=== PATIENT | male | born 1965 | race Caucasian/White ===

== ENCOUNTER → 2016-09-18 | Outpatient (CLI) | payer BC ==
[~2016-09-18] MED LIST: CARB200T PO; MISCCAP80 PO; THY/30 PO
--- NOTE | 2016-09-18 18:36 | DIAGNOSTIC IMAGING REPORT ---
LEFT RIBS UNILATERAL WITH PA CHEST CLINICAL HISTORY: Left rib pain status post trauma COMPARISON STUDY: No previous studies for comparison. FINDINGS: There is a right clavicular fracture, likely old. Please correlate clinically. There is no pneumothorax. There is no focal pulmonary consolidation. No left-sided rib fractures are visualized. IMPRESSION: 1. No left-sided rib fractures identified 2. No evidence of pneumothorax 3. Right clavicular fracture, likely old. Clinical correlation is advocated. Electronically signed by: Benji Virk M.D. 09/18/2016 6:35 PM Dictated Date/Time: 09/18/2016 6:33 PM
== END | disposition home or self-care (01) ==
LOC: C.RAD 17:39
PROVIDERS: ATTEND Family Medicine
DX: S20.212A Contusion of left front wall of thorax, initial encounter (principal); S42.001D Fracture of unspecified part of right clavicle, subsequent encounter for fracture with routine healing; X58.XXXA Exposure to other specified factors, initial encounter

== ENCOUNTER 2016-12-02 14:08 | Emergency (ER) | payer BC ==
[~2016-12-02] VITALS: Ht 182.9 cm; Wt 92.0 kg
[2016-12-02 14:28] VITALS: TEMP 37; Ht 182.9 cm; Wt 92.0 kg
[2016-12-02] MEDS ORDERED: SODIUM CHLORIDE 0.9% 1000ML 1,000 ML IV STA (14:32)
[2016-12-02] MEDS ORDERED: LORAZEPAM 2 MG/ML 1 ML VIAL IV STA (14:32)
--- NOTE | 2016-12-02 15:47 | EMERGENCY ROOM VISIT NOTE ---
History Report prepared by Jerry: Ryan Blue Under the Supervision of: Dr. Kar Ribeiro M.D. First contact with patient: 14:23 Chief Complaint: SEIZURE Stated Complaint: SEIZURES History of Present Illness The patient is a 51 year old male who presents to the Emergency Room with complaints of a sudden seizure occurring prior to arrival. The patient states that he was chewing a salad, and he started to feel the seizure coming on, and then he fell and lost consciousness for around 5 minutes. The patient states that he has a history of seizures, and his last one was in 2010. The patient states that his seizures are induced by a certain placement of his jaw, and if he put his mouth a certain way the seizures will occur. He states that he has had jaw massages, and these caused seizures that would last 10-30 seconds. The patient states that he is on Tegretol which has been tapered down, and he forgot to take the medicine for the past two days. The patient states that he was not drinking over the weekend. He states that he has a history of an appendectomy and a bowel obstruction. Source of History: patient Onset: prior to arrival Position: other (global) Quality: other (seizure) Timing: other (sudden) Associated Symptoms: + LOC Review of Systems See HPI for pertinent positives & negatives. A total of 10 systems reviewed and were otherwise negative. Past Medical & Surgical Medical Problems: (1) Seizures Social History Smoking Status: Never Smoker Marital Status: Housing Status: lives with family Occupation Status: employed Current/Historical Medications Scheduled Carbamazepine (Tegretol), 200 MG PO BID Probiotic Product (Probiotic), 1 CAP PO DAILY Thyroid ([place] Thyroid), 90 MG PO DAILY Allergies Coded Allergies: No Known Allergies (Verified , `, 12/02/16) Physical Exam Vital Signs Date Time Temp Pulse Resp B/P Pulse Ox O2 Delivery O2 Flow Rate FiO2 12/02/16 16:22 79 18 147/84 100 12/02/16 15:01 87 18 148/77 100 Room Air 12/02/16 14:47 82 12/02/16 14:28 37.0 90 18 178/100 95 Room Air Physical Exam GENERAL: Patient is well appearing and in no acute distress. HEENT: No acute trauma, normocephalic atraumatic, mucous membranes moist, no nasal congestion, no scleral icterus. NECK: No stridor, no adenopathy, no meningismus, trachea is midline. LUNGS: No dyspnea. Clear to auscultation and equal bilaterally. No wheeze, no rhonchi. HEART: Regular rate and rhythm. No murmurs, rubs, gallops appreciated. ABDOMEN: Old scarring noted. Soft, nontender, bowel sounds positive, no masses appreciated, no peritonitis. BACK: No midline tenderness, no CVA tenderness EXTREMITIES: Normal motion all extremities, no cyanosis, no edema. NEUROLOGIC: Alert and oriented, no acute motor or sensory deficits, no focal weakness, cranial nerves grossly intact. SKIN: No rash, no jaundice, no diaphoresis. Medical Decision & Procedures Medications Administered Medications (Trade) Dose Ordered Sig/Marah Route Start Time Stop Time Status Last Admin Dose Admin Sodium Chloride (Nss 1000ml) 1,000 ml @ 999 mls/hr Q1H1M STAT IV 12/02/16 14:32 12/02/16 15:33 DC 12/02/16 15:00 999 MLS/HR Lorazepam (Ativan Inj) 1 mg NOW STAT IV 12/02/16 14:32 12/02/16 14:33 DC 12/02/16 15:00 1 MG ED Course 1423: The patient was evaluated in room B12. A complete history and physical exam was performed. 1432: Ativan Inj 1mg IV, Sodium Chloride 1000 ml @ 999 mls/hr 1512: I reevaluated the patient, and was feeling fine, and his is at his bedside. 1559: I discussed the patient's case with Dr. Ledezma, Neurology. 1610: Reevaluated the patient, and he states that he feels fine, and I discussed with the per Dr. Ledezma, the patient should take one tablet of his medication now, and he should restart normal medicine tonight. He should follow up with Dr. Ledezma as an outpatient, and he agrees to not drive, operate heavy machinery, or do anything dangerous. Dr. Ledezma will determine whether the state needs to be notified. The patient is ready for discharge. Medical Decision Differential: Toxicological, Infectious, Stroke, SAH, Trauma, Electrolyte Abnormality, Hypoglycemia, Alcohol Intoxication, Drug Intoxication, Cardiac Abnormality, Sepsis, Meningitis/Encephalitis, Trauma, Excited Delirium, Serotonin Syndrome, Psychiatric, amongst other pathologies entertained. Pleasant 51 yr old male with long history of seizures who notes primary causes are not taking meds and grinding left TMJ. Missed last 2 doses tegretol and was eating with left side of mouth when proceeded to have witnessed 5 min seizure. Patient now a&o without complaints. No shob nor aspiration symptoms and feels well. Given fluids along with IV ativan and monitored for several hours. No further issues. Discussed with neurologist who advised dose Tegretol now (he took his dose here) and to start normal dosing tonight. Stressed no driving until cleared by neurologist who will determine if license to be removed. Patient understands as does his he is not to drive, operate machinery nor do dangerous activities. Stable and feels well at discharge. No evidence infection nor neuro deficits. Consults Time Called: 0418 Consulting Physician: Dr. Ledezma, Neurology Returned Call: [phone] I discussed the patient's case with Dr. Ledezma, Neurology. Impression Primary Impression: Seizure Additional Impression: Noncompliance with medications Scribe Attestation The scribe's documentation has been prepared under my direction and personally reviewed by me in its entirety. I confirm that the note above accurately reflects all work, treatment, procedures, and medical decision making performed by me. Departure Information Dispostion Home / Self-Care Referrals Jovanna Underwood M.D. (PCP) Forms HOME CARE DOCUMENTATION FORM, IMPORTANT VISIT INFORMATION Patient Instructions Epilepsy Seizures, My [facility] Additional Instructions Do not drive nor operate heavy machinery until you are cleared by your Neurologist. This is important!!! Problem Qualifiers
[2016-12-02 16:22] VITALS: BP 147/84; PULSE 79; O2SAT 100
== END 2016-12-02 16:23 | disposition home or self-care (01) ==
LOC: EDBD 14:08 → C.EDB 14:13
DX: G40.909 Epilepsy, unspecified, not intractable, without status epilepticus (principal); Z91.138 Patient's unintentional underdosing of medication regimen for other reason; T42.1X6A Underdosing of iminostilbenes, initial encounter; Z79.899 Other long term (current) drug therapy

== ENCOUNTER 2017-12-19 18:34 | Emergency (ER) | payer BC, OTHER ==
[~2017-12-19] VITALS: Ht 180.3 cm; Wt 90.3 kg
[2017-12-19 18:41] VITALS: TEMP 36.6; Ht 180.3 cm; Wt 90.3 kg
--- NOTE | 2017-12-19 19:05 | EMERGENCY ROOM VISIT NOTE ---
History Report prepared by Jerry: Mau Correa Under the Supervision of: Dr. Ariel Noyola M.D. First contact with patient: 18:46 Chief Complaint: SWELLING TO EXTREMITY Stated Complaint: SWELLING TO LOWERE LEFT LEG/ BLOOD CLOT History of Present Illness The patient is a 52 year old white male with a past medical history of seizures which he takes medication for who presents to the ED with a cc of constant left calf soreness beginning a week ago. Patient states that the symptoms came on when he was running a 100 yard sprint up a hill with a slight elevation. He states that the pain came on all of sudden and he did not hear a "snap". He describes the pain as a 5-6/10 in severity. Patient states that pain the pain is relieved with rubbing and stretching. Positive symptoms include left leg swelling from his calf down to the his ankle. Patient adds that the injury occurred in [place]. He states that 2 days ago he flew from [place] to [place]. He adds that he then drove from [place] to [place]. Patient states that he last seizure was yesterday. He states that it lasted 20 seconds. Patient denies a history of blood clots. He denies alcohol or tobacco use. Negative symptoms include chest pain, SOB, abdominal pain, and urinary symptoms. Source of History: patient Onset: A week ago Position: other (Left calf) Symptom Intensity: 5-6/10 Timing: constant Modifying Factors (Relieving): stretching, other (Rubbing) Associated Symptoms: No chest pain, No SOB, No abdominal pain, No urinary symptoms Note: Patient has left leg swelling from his calf to ankle. Review of Systems See HPI for pertinent positives and negatives. A total of ten systems were reviewed and were otherwise negative. Past Medical & Surgical Medical Problems: (1) Seizures Family History No pertinent family history. Social History Smoking Status: Never Smoker Marital Status: Housing Status: lives with family Occupation Status: employed Current/Historical Medications Scheduled Carbamazepine (Tegretol), 200 MG PO BID Multiple Vitamin (Multi Vitamin), 1 TAB PO DAILY Probiotic Product (Probiotic), 1 CAP PO DAILY Thyroid ([place] Thyroid), 75 MG PO DAILY Allergies Coded Allergies: No Known Allergies (Verified , `, 12/19/17) Physical Exam Vital Signs Date Time Temp Pulse Resp B/P (MAP) Pulse Ox O2 Delivery O2 Flow Rate FiO2 12/19/17 21:10 55 18 146/77 97 12/19/17 19:35 67 16 156/88 98 Room Air 12/19/17 18:41 36.6 61 20 154/89 98 Room Air Physical Exam GENERAL: Awake, alert, well-appearing, NAD HENT: Normocephalic, atraumatic. EYES: Normal conjunctiva. Sclera non-icteric. PERRL. No anisocoria. NECK: Supple. No nuchal rigidity. FROM. RESPIRATORY: CTAB, no rhonchi, wheezing, crackles CARDIAC: RRR, no MRG ABDOMEN: Soft, NTND, BS+ MSK: No chest wall TTP, mild L ankle pain, mild ankle swelling, no ecchymosis, negative Homans's sign, LLE NVI distally to SP/DP/tib nerves. NEURO: GCS 15, CN 2-12 intact, moves all 4s on command SKIN: No rash or jaundice noted. Medical Decision & Procedures ER Provider Diagnostic Interpretation: Radiology results as stated below per my review and radiologist interpretation: LEFT LOWER EXTREMITY VENOUS DOPPLER HISTORY: pain/calf swelling, recent flight/drive from [place] COMPARISON STUDY: None. FINDINGS: There is normal compressibility, flow, and augmentation within the left lower extremity deep venous system. IMPRESSION: No DVT within the left lower extremity. Electronically signed by: Riki Lewis M.D. 12/19/2017 8:19 PM ED Course 1849: The patient was evaluated in room A12B. A complete history and physical exam was performed. 1936: I reassessed the patient. He states that he is feeling better. 2054: I reevaluated the patient. Discussed results and discharge instructions. He verbalized understanding and agreement. The patient is ready for discharge. Medical Decision Nursing notes reviewed. Ancillary studies and prior records reviewed. The patient is a 52 year old white male with a past medical history of seizures which he takes medication for who presents to the ED with a cc of constant left calf soreness beginning a week ago. The patient's presentation and history were concerning for DVT, musculoskeletal , infection, joint effusion, trauma, lymphedema, idiopathic, CHF, as well as others were entertained. Patient was seen and evaluated the bedside. Patient does have a prior history of seizures and does take Tegretol. Patient does have petit mall seizures last occurring yesterday. The patient does present after being seen in and off hours clinic by physician as a referral for possible blood clot. Of note the patient did strain his left lower extremity as he does routinely try to do some sprints during workouts. Noticed that he felt no sort of pain. He has been using rest, ice, and compression. Of note though the patient was recently on a flight from [place] and did drive over 3-1/2 hours from [place] back to [place]. Patient denies any prior history of DVT or PE. Patient has no history of thrombophilia. The patient denies any chest pain or shortness of breath. On exam the patient does have some mild swelling and discomfort more localized to the ankle. He has a negative Homans sign. Patient did have ultrasound completed. Patient declined any pain medication at this time. Patient ultrasound was unremarkable. The patient was counseled on helping avoid venous stasis during long plane or car travel. He was further informed in addition to his rice therapy about pain medication to help with any strains or sprains. Patient was deemed suitable for outpatient follow-up and treatment at this time. Patient was given strict follow-up, discharge, and return precautions. All questions were answered. Patient was deemed suitable for outpatient follow-up at this time. Patient agreed with the plan of care and was safely discharged home. Medication Reconcilliation Current Medication List: was personally reviewed by me Blood Pressure Screening Patient's blood pressure: Elevated blood pressure Blood pressure disposition: Referred to PCP Impression Primary Impression: Swelling of left extremity Additional Impression: Strain of calf muscle Scribe Attestation The scribe's documentation has been prepared under my direction and personally reviewed by me in its entirety. I confirm that the note above accurately reflects all work, treatment, procedures, and medical decision making performed by me. Departure Information Dispostion Home / Self-Care Referrals Jovanna Underwood M.D. (PCP) [facility] Instructions [facility] Additional Instructions Please return to the emergency department if you have worsening or recurrent symptoms not amenable to at-home treatment. Please call for a follow-up appointment with her primary care physician. Please take your medications as prescribed. If you have other concerns and/or complaints please feel free to also call your primary care physician's office or return the ED for further evaluation, management, and treatment. You may take 800 mg Ibuprofen every 6 hours as needed for pain/fever with food unless told by your physician not to take NSAIDs. You may take tylenol 1000 mg every 6 hours as needed for pain/fever unless told by your physician to not take it or have liver problems. You may take motrin and tylenol separately or at the same time. Take your medications as prescribed. You have been examined and treated today on an emergency basis only. This is not a substitute for, or an effort to provide, complete comprehensive medical care. It is impossible to recognize and treat all injuries or illnesses in a single emergency department visit. It is therefore important that you follow up closely with [facility], your PCP, and/or your specialist(s). Call as soon as possible for an appointment. Thank you for your time and consideration. I look forward to speaking with you again soon. Please don't hesitate to call us if you have any questions. Problem Qualifiers
[2017-12-19] MEDS ORDERED: MULT-1027 PO (19:06)
--- NOTE | 2017-12-19 20:20 | DIAGNOSTIC IMAGING REPORT ---
LEFT LOWER EXTREMITY VENOUS DOPPLER HISTORY: pain/calf swelling, recent flight/drive [place] COMPARISON STUDY: None. FINDINGS: There is normal compressibility, flow, and augmentation within the left lower extremity deep venous system. IMPRESSION: No DVT within the left lower extremity. Electronically signed by: Riki Lewis M.D. 12/19/2017 8:19 PM Dictated Date/Time: 12/19/2017 8:19 PM
[2017-12-19 21:10] VITALS: BP 146/77; PULSE 55; O2SAT 97
== END 2017-12-19 21:10 | disposition home or self-care (01) ==
LOC: C.EDB 18:36 → C.EDA 21:10
DX: M79.89 Other specified soft tissue disorders (principal); S86.212A Strain of muscle(s) and tendon(s) of anterior muscle group at lower leg level, left leg, initial encounter; X58.XXXA Exposure to other specified factors, initial encounter; R56.9 Unspecified convulsions